=== PATIENT | female | born 1970 | race Caucasian/White ===

== ENCOUNTER → 2018-06-29 | Day surgery (SDC) | payer OTHER ==
[~2018-06-29] MED LIST: ACETAMINOPHEN 1000 MG/100 ML 100 ML IV ONE; BENADRYL25 M1 PO; BENTYL10 MG/1 ML PO; CARAFATE1 GM PO; CLONAZEPAM0.5 MG PO; COLESTIPOL HCL1 GM PO; FENTANYL CITRATE/PF 100MCG/2 ML INJ ONE; HYOSCYAMINE SULFATE 0.5 MG/ML INJ ONE; MIDAZOLAM HCL 2 MG/2 ML VIAL ONE; MIDAZOLAM HCL 5 MG/ML VIAL ONE; OMEPRAZOLE40 MG PO; PROBIOTIC PO; PROPOFOL IV EMULSION 10 MG/ML 50 ML VIAL ONE; SERTRALINE HCL50 MG PO; VIT D PO
[2018-06-29 18:45] VITALS: BP 115/71
[2018-06-29 19:15] LABS: WBC,FECAL (FECAL LACTOFERRIN) NEGATIVE (NEGATIVE)
--- NOTE | 2018-06-29 19:32 | Operative Report ---
DATE OF PROCEDURE: June 29, 2018 REFERRING PHYSICIAN: Dr. Lizzy Leger. PROCEDURES PERFORMED 1. Esophagogastroduodenoscopy with biopsies. 2. Colonoscopy with biopsies. INDICATIONS FOR EGD: History of heartburn, indigestion, nausea, and bloating. INDICATIONS FOR COLONOSCOPY: History of colon polyps, lower abdominal pain, and loose stools. MEDICATION: Patient was done under MAC, please see anesthesiologist's note. PROCEDURE IN DETAIL: With the patient in the left lateral decubitus position, the flexible fiberoptic Olympus gastroscope was introduced into the esophagus under direct visualization without any difficulty. There were some longitudinal furrows and some concentric rings in the esophagus compatible with eosinophilic esophagitis and biopsies were obtained. The scope was then advanced with ease into the stomach, traversing a small hiatal hernia. Patient is status post gastric sleeve. Mucosa overlying the antrum and the body revealed some diffuse erythema and low-grade to moderate edema and biopsies were obtained and sent to stain for H. pylori. Pylorus appeared to be of normal contour and shape, was intubated with ease, and the scope was advanced all the way to the 2nd portion of the duodenum. Biopsies were obtained from the proximal 2nd portion to rule out sprue. There was a minute nodule noted in the duodenal bulb that was biopsied. The scope was then withdrawn back into the stomach and retroflexed and some postoperative changes were noted in addition to the previously described hiatal hernia. The scope was then straightened out and was subsequently withdrawn. Patient tolerated the procedure well. IMPRESSION 1. Rule out eosinophilic esophagitis, biopsies obtained. 2. Small hiatal hernia. 3. Status post gastric sleeve. 4. Gastritis, biopsied. Biopsies sent to stain for Helicobacter pylori. 5. Duodenal bulb nodule, biopsied. 6. Rule out sprue. PLAN: Follow up histology. Initiate Protonix 40 mg 1 p.o. q.a.m. a.c. and Carafate 1 gram p.o. a.c. t.i.d. and q.h.s. Patient was then turned around. After adequate lubrication of the anal canal, a flexible fiberoptic Olympus colonoscope was inserted into the rectum with ease and advanced all the way to the cecum. It was then withdrawn slowly. Mucosa overlying the cecum, ascending colon, and transverse colon appeared to be within normal limits. There were some mild patchy inflammatory changes noted in the left colon and random biopsies were obtained. Some minimal diverticulosis was noted also in the sigmoid colon. The scope was then retroflexed into the distal rectum and small internal hemorrhoids were noted, none of which was actively bleeding. The scope was then straightened out. The rectosigmoid area as well as the distal rectal area were decompressed. The scope was subsequently withdrawn after securing an adequate stool specimen that was sent for the appropriate stool studies. Patient tolerated the procedure well. IMPRESSION 1. Mild patchy colitis, left-sided. 2. Diverticulosis, minimal. 3. Internal hemorrhoids, none actively bleeding. PLAN: Follow up histology. Follow up stool studies. Initiate VSL#3 one p.o. daily. Bentyl 10 mg 1 p.o. t.i.d. Patient might benefit from a followup colonoscopy in 5 years. Job#: [id number] OSVALDO cc:DR. LIZZY LEGER
[2018-06-30 14:17] LABS: C DIFFICILE TOXIN A&B AMP PROB NEGATIVE (NEGATIVE)
--- OUTSIDE RECORDS SUMMARY | 2018-07-03 13:31 | XMS REPORT ---
Author Author [facility] Address Unknown Phone Unavailable Care Team Providers [facility] Tie Turner Name Role Phone Unavailable Unavailable Payers Payer Name Policy Type Policy Number Effective Date Expiration Date Problems This patient has no known problems. Allergies, Adverse Reactions, Alerts Allergy Name Allergy Type Status Severity Reaction(s) Onset Date Inactive Date Treating Clinician Comments Penicillins DA Active U 2014-01-16 00:00:00 adhesive DA Active U 2014-01-16 00:00:00 Medications This patient has no known medications.
== END | disposition home or self-care (01) ==
LOC: OR 14:07
PROVIDERS: ATTEND Internal Medicine Gastroenterology
DX: K29.80 Duodenitis without bleeding (principal); Z86.010 Personal history of colon polyps; K21.0 Gastro-esophageal reflux disease with esophagitis; K44.9 Diaphragmatic hernia without obstruction or gangrene; K29.70 Gastritis, unspecified, without bleeding; Z98.84 Bariatric surgery status; K51.50 Left sided colitis without complications; K57.30 Diverticulosis of large intestine without perforation or abscess without bleeding; K64.8 Other hemorrhoids; Z88.0 Allergy status to penicillin; Z88.2 Allergy status to sulfonamides; Z91.048 Other nonmedicinal substance allergy status
CPT/HCPCS: 43239; 45380; 81025; 83630; 83993; 87045; 87177; 87328; 87493; J1980; J2250 ×2

== ENCOUNTER → 2019-01-31 | Day surgery (SDC) | payer OTHER ==
[~2019-01-31] MED LIST changes: -ACETAMINOPHEN 1000 MG/100 ML 100 ML IV ONE; +CIPRO500 MG PO; +FLAGYL250 MG PO; +LEXAPRO10 MG PO; +LIDOCAINE HCL 2% LOCAL INJ 5 ML SDV VIAL INJ ONE; -MIDAZOLAM HCL 5 MG/ML VIAL ONE; +[UNRECOGNIZED DRUG - OTHER] PO
--- NOTE | 2019-01-31 07:10 | NUR ---
SPIRITUAL CARE - Pre-Surgery Assessment: Pt in bed. Pt's at bedside. Pt reported supportive attention from family and friends. Intervention: I provided pastoral presence, hospitality, and sympathetic listening. I acquainted pt with availability of field sales executive while hospitalized. Outcome: Pt expressed appreciation for visit. No need for follow up indicated at this time. [facility] Spiritual Care Department O: [phone] Pager: [phone] ([phone] number calling from)
[2019-01-31 08:45] VITALS: BP 105/83
--- NOTE | 2019-01-31 14:14 | Operative Report ---
DATE OF PROCEDURE: 01/31/2019 SURGEON: Chencho Parson MD PROCEDURE: Colonoscopy with biopsies and polypectomy. INDICATIONS FOR COLONOSCOPY: History of chronic diarrhea, abnormal CAT scan. MEDICATION: The patient was done under MAC, please see anesthesiologist's note. PROCEDURE IN DETAIL: With the patient in left lateral decubitus position, flexible fiberoptic Olympus colonoscope was inserted into the rectum with ease and advanced all the way to the cecum. Mucosa overlying the cecum appeared to be within normal limits. The ileocecal valve was intubated and the scope was advanced into the terminal ileum. Biopsies were obtained. The scope was then withdrawn back into the colon. It was then withdrawn slowly and mucosa overlying the ascending and the transverse appeared to be within normal limits. Mucosa overlying the distal descending and the sigmoid as well as the rectum revealed some patchy mild inflammatory changes and biopsies were obtained. Some diverticular disease was noted in the sigmoid colon. Minute hyperplastic-appearing polyps were noted in the rectum and those were removed per hot biopsy forceps. The scope was then retroflexed into the distal rectum and small internal hemorrhoids were noted, none of which was actively bleeding. The scope was then straightened out, it was subsequently withdrawn. The patient tolerated procedure well. IMPRESSION: 1. Mild patchy left-sided colitis. 2. Diverticulosis. 3. Rectal polyps, minute, hyperplastic appearing, hot biopsied. 4. Internal hemorrhoids, none actively bleeding. PLAN: Follow up histology. The patient might benefit from a followup colonoscopy in 5 years. Chencho Parson MD [facility] [place] /[id number] cc: Martha Boyer MD
== END | disposition home or self-care (01) ==
LOC: OR 06:02
PROVIDERS: ATTEND Internal Medicine Gastroenterology
DX: K51.50 Left sided colitis without complications (principal); K62.1 Rectal polyp; K29.70 Gastritis, unspecified, without bleeding; K25.9 Gastric ulcer, unspecified as acute or chronic, without hemorrhage or perforation; K57.30 Diverticulosis of large intestine without perforation or abscess without bleeding; K64.8 Other hemorrhoids; K21.9 Gastro-esophageal reflux disease without esophagitis; Z91.048 Other nonmedicinal substance allergy status; K31.89 Other diseases of stomach and duodenum; K44.9 Diaphragmatic hernia without obstruction or gangrene; F41.9 Anxiety disorder, unspecified; Z88.0 Allergy status to penicillin; Z88.2 Allergy status to sulfonamides; Z68.27 Body mass index [BMI] 27.0-27.9, adult; Z87.891 Personal history of nicotine dependence; Z98.84 Bariatric surgery status
CPT/HCPCS: 45380; 45384; 81025; J1980; J2001; J2250; J2704; 45378

== ENCOUNTER → 2024-04-12 | Day surgery (SDC) | payer BC ==
[~2024-04-12] MED LIST changes: +DEXMEDETOMIDINE HCL 200 MCG/2 ML VIAL ONE; +FERROUS SULFAT325 MG PO; +GLYCOPYRROLATE INJ 0.2 MG/ML VIAL ONE; -HYOSCYAMINE SULFATE 0.5 MG/ML INJ ONE; +KETAMINE 50MG/5ML SYR ONE; +PROPOFOL IV EMULSION 10 MG/ML 20 ML VIAL ONE; -PROPOFOL IV EMULSION 10 MG/ML 50 ML VIAL ONE; +ZYRTEC-D TABLE1 EACH PO
[2024-04-12] MEDS: LACTATED RINGER'S 1,000 ML ONE (08:47)
[2024-04-12 11:48] VITALS: TEMP 97.4
[2024-04-12 12:14] VITALS: BP 103/60; PULSE 65; RESP 18; O2SAT 98
[2024-04-12 12:23] LABS: WBC,FECAL (FECAL LACTOFERRIN) NEGATIVE (NEGATIVE)
== END | disposition home or self-care (01) ==
LOC: OR 08:47
PROVIDERS: ATTEND Internal Medicine Gastroenterology
DX: K31.A0 Gastric intestinal metaplasia, unspecified (principal); Z86.010 Personal history of colon polyps; K29.70 Gastritis, unspecified, without bleeding; K52.9 Noninfective gastroenteritis and colitis, unspecified; K62.89 Other specified diseases of anus and rectum; K21.9 Gastro-esophageal reflux disease without esophagitis; K31.89 Other diseases of stomach and duodenum; K64.8 Other hemorrhoids; K22.10 Ulcer of esophagus without bleeding; K44.9 Diaphragmatic hernia without obstruction or gangrene; Z98.84 Bariatric surgery status; J45.909 Unspecified asthma, uncomplicated; M06.9 Rheumatoid arthritis, unspecified; F32.A Depression, unspecified; F41.9 Anxiety disorder, unspecified; Z88.0 Allergy status to penicillin; Z88.2 Allergy status to sulfonamides; Z91.048 Other nonmedicinal substance allergy status; Z01.810 Encounter for preprocedural cardiovascular examination; Z79.899 Other long term (current) drug therapy
CPT/HCPCS: 43239; 45380; 83630; 83993; 86140; 87324; 87449; 93005; J2001; J2250; J2470; J2704; J3010; J7121; 45378